=== PATIENT | female | born 1980 | race Caucasian/White ===

== ENCOUNTER 2024-12-02 10:51 | Outpatient (REF) | payer OTHER, SELFPAY ==
[2024-12-02 12:58] LABS: MANUAL DIFF FLAG NO
[2024-12-02 13:35] LABS: Basophils Absolute Auto 0.1 X10*3/uL (0.0-0.2); Basophils Percent Auto 1.1 % (0-2); Eosinophils Absolute Auto 0.3 X10*3/uL (0.0-0.4); Eosinophils Percent Auto 2.5 % (0-4); Hemoglobin 10.7 g/dl (12.0-16.0); Imm Gran Abs Auto 0.04 X10*3/uL (0.00-0.03); Imm Gran Pct Auto 0.3 % (0.0-0.4); Lymphocytes Absolute Auto 3.2 X10*3/uL (1.2-4.9); Lymphocytes Percent Auto 26.3 % (20-40); Mean Corpuscular HGB Conc 30.6 g/dl (31.0-35.0); Mean Corpuscular Hemoglobin 24.3 pg (27.0-33.0); Mean Corpuscular Volume 79.5 fL (80.0-98.0); Mean Platelet Volume 8.7 fL (9.4-12.3); Monocytes Absolute Auto 0.7 X10*3/uL (0.1-1.2); Monocytes Percent Auto 5.8 % (2-11); Neutrophils Absolute Auto 7.8 x10*3/uL (2.0-8.3); Platelet Count 636 X10*3/uL (160-400); Red Cell Distribution Width 14.4 % (11.0-16.0); White Blood Count 12.1 X10*3/uL (4.8-10.8)
[2024-12-02 14:25] LABS: Alanine Aminotransferase 11 U/L (0-31); Albumin Level 4.4 g/dL (3.5-5.0); Alkaline Phosphatase 59 U/L (39-117); Anion Gap 11 (12-20); Aspartate Amino Transferase 12 U/L (5-31); Bilirubin Total 0.3 mg/dL (0.0-1.0); Blood Urea Nitrogen 6 mg/dL (9-16); Calcium 9.1 mg/dL (8.4-10.2); Carbon Dioxide 23 mmol/L (22-29); Chloride 109 mmol/L (96-108); Cholesterol 210 mg/dL (<200); Estimated Glomerular Filt Rate > 60; Glucose Fasting 92 mg/dL (60-99); HDL Cholesterol 53 mg/dL (>40); LDL Cholesterol Calculated 126 mg/dL (<100); Potassium 3.8 mmol/L (3.3-5.1); Sodium 139 mmol/L (135-145); Total Protein 7.2 g/dL (6.5-8.0); Triglycerides 156 mg/dL (<150)
[2024-12-02 14:34] LABS: TSH reflex Free T4 2.41 uIU/mL (0.32-4.0); Vitamin D 25-OH Total 16.1 ng/mL (>30)
[2024-12-02 15:24] LABS: Appearance Urine Hazy; Color Urine Yellow; Glucose Urine UA Negative (Negative); Leukocyte Esterase Urine Negative (Negative); Nitrite Urine Negative (Negative); Specific Gravity - Urine >= 1.030 (1.005-1.025); Urine Blood Negative (Negative); Urine Ketones Negative (Negative); Urine Protein Negative (Neg-Trace)
== END 2024-12-02 10:52 | disposition home or self-care (01) ==
LOC: HO.LAB 10:51
DX: Z00.00 Encounter for general adult medical examination without abnormal findings (principal); K57.90 Diverticulosis of intestine, part unspecified, without perforation or abscess without bleeding; F31.81 Bipolar II disorder; F60.3 Borderline personality disorder
CPT/HCPCS: 36415; 80053; 80061; 81003; 82306; 84443; 85025; 96127; 99202

== ENCOUNTER 2024-12-02 10:51 | Outpatient (AMB) | payer OTHER, SELFPAY ==
--- NOTE | 2024-12-02 10:52 | A.OFFPC_ITS ---
Vital Signs 12/02/24 10:53 Height 5 ft 2.5 in Weight 174 lb 9.6 oz BMI 31.4 BP 124/80 Blood Pressure Location Lt brachial Position Sitting Respiration 18 Pulse 70 Pulse Source Pulse Oximeter Temp 99.2 F Temp Source Oral Pulse Oximetry (%) 99 Oxygen Delivery Method Room Air Intake Visit Reasons: Establish Care Intake Note: Patient is a new patient here to establish care. Transferring care from the Dr. Edgardo Alejandre Jr in [place], [place]; Patient states that it's been approximately 5 years since she's had a PCP. Medical records have not been requested and have not been received. Patient completed authorization of medical information release form today. 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: No Accompanied by: Spouse Allergies No Known Allergies Allergy (Verified 12/02/24 11:18) Medication List - Last Reconciled 12/02/24 by CARI Tolbert omeprazole 20 mg PO DAILY valacyclovir 1,000 mg PO Q12H PRN Tobacco use date assessed: 12/02/24 Dental Screening Dental Screen Date: 12/02/24 Did you have a dental visit in the last 12 months?: No Did you have a dental problem in the last 6 months where you did not have access to dental care?: No Was dental information given to patient?: Patient has dentist HPI Establish Care HPI Details Previous PCP: Edgardo Alejandre Jr, in [place], [place] Last visit: 5years ago Last PE: same Specialist: GI-egd/colonoscopy- 2013 -was due to repeat in 5years OBGYN: no-will referred Past medical history: Depression, bipolar d/o and borderline personality, marijuana use. Quitted drinking 4 months ago, but she would like to quit all of it. Reports seeing a therapist last when she was 30 years old. Reports that she was prescribed lexapro, wellbutrin and hydroxyzine. Reports that she had tried these medications but was not consistent with them. Problem: Every month a lot blood with clots from rectum. Reports this has been going on for couple of years now. Reports that she did not go to the ER for this. She had gone the emergency in 2013 and they referred her to have a colonoscopy and EGD. These this is supposed to be repeated in 5 years and was due years ago. Reports that she is bleeding during bowel movement only. Reports that it is bright red blood. Reports that the bleeding will happen each time she goes to the bathroom for about a week then it would just stop for a little while then restart after. Reports a history of hemorrhoids. Reports that they also removed benign polyps during her colonoscopy as well. Reports that this happened last about a week and half ago. Reports that it last for about a week. Reports that she feels tired a lot and she is not sure if it because she is depressed as well. Reports that her bottom is always sore even when it is not bleeding. 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 Patient chest pain, shortness of breath heart palpitation or dizziness Two small external hemorrhoids noted on exam. right inner arm lipoma and muscle pain -will revisit this on next appt [facility] Medical History (Updated 12/02/24 @ 12:42 by CARI Tolbert) Hemorrhoid Bipolar 2 disorder Diverticulosis Surgical History H/O endoscopy H/O colonoscopy H/O wisdom tooth extraction H/O elbow surgery Family History Father Diabetes Alcohol abuse Mother Arrhythmia Paternal Grandmother Substance abuse Paternal Grandfather Substance abuse Social History Household Members: Spouse Housing: House Alcohol intake: former Patient Tobacco Use Status: Former Tobacco user Years Smoked: 15; Quit-2013 e-Cigarette/Vaping Use: Currently Using (Vape) Substance Use Type: Marijuana service: No Current occupational status: employed (Self-employed) 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 1. Little interest or pleasure in doing things: nearly every day 2. Feeling down, depressed, or hopeless: nearly every day 3. Trouble falling or staying asleep, or sleeping too much: more than half the days 4. Feeling tired or having little energy: nearly every day 5. Poor appetite or overeating: more than half the days 6. Feeling bad about yourself - or that you are a failure or have let yourself or your family down: nearly every day 7. Trouble concentrating on things, such as reading the newspaper or watching television: nearly every day 8. Moving or speaking so slowly that other people could have noticed. Or the opposite - being so fidgety or restless that you have been moving around a lot more than usual: more than half the days 9. Thoughts that you would be better off or of hurting yourself in some way: more than half the days Total score: 23 Depression Screening Interpretation: Positive Depression Screening Done: Yes [id number] - PHQ-9 Billing: Yes Source: Developed by Drs. James Umana, Katja Preciado, Lee Harmon and colleagues, with an educational savanna from [employer]. Thrive Questionnaire Date Thrive assessed: 12/02/24 I am a: Patient What is your living situation today?: I have a steady place to live Within the past 12 months, did the food you bought not last and you didn't have the money to get more?: Never true Within the past 12 months, did you worry whether your food would run out before you got money to buy more?: Never true Do you have trouble paying for medicines?: No Do you have trouble getting transportation to medical appointments?: No Do you have trouble paying your heating and electricity bill?: Yes Do you have trouble taking care of your child, family member or friend?: No Do you have trouble with day-to-day activities such as bathing, preparing meals, shopping, managing finances, etc.?: No Are you currently unemployed and looking for a job?: No Are you interested in more education?: No Please select the resources that you would like help with: Utilities Currently or been in a relationship where the following occur: No concerns reported THRIVE Score: 1 AUDIT C Alcohol Use Questionnaire (AUDIT-C) 1. How often do you have a drink containing alcohol?: 2-4 times a month 2. How many drinks containing alcohol do you have on a typical day when you are drinking?: 1 or 2 3. How often do you have six or more drinks on one occasion?: Never Total Score: 2 SUZI-7 AMB Questionnaire SUZI-7 Date SUZI - 7 assessed: 12/02/24 Feeling nervous, anxious, or on edge: 3 = Nearly every day Not being able to stop or control worryin = Nearly every day Worrying too much about different things: 3 = Nearly every day Trouble relaxin = Nearly every day Being so restless that it is hard to sit still: 0 = Not at all Becoming easily annoyed or irritable: 3 = Nearly every day Feeling afraid as if something awful might happen: 3 = Nearly every day Total SUZI-7 score (0-4 normal; 5-9 mild; 10-14 moderate; 15-21 severe): 18 Source: Developed by Drs. James Umana, Katja Preciado, Lee Harmon and colleagues, with an educational savanna from [employer]. SUZI-7 Assessment Billing SUZI-7 Assessment Tool: SUZI-7 Assessment 05410 Review of Systems Const Denies headache(s) Eyes Denies loss of vision ENT Denies vertigo, Denies dizziness, Denies headache(s) and Denies sore throat Card Denies chest pain, Denies leg edema and Denies lightheadedness Resp Denies cough, Denies hemoptysis and Denies wheezing GI Denies abdominal pain, Denies melena, Reports hematochezia, Denies constipation, Reports heartburn (if she forgets to take omeprazole), Denies diarrhea and Denies vomiting Denies urinary frequency, Denies dysuria and Denies urinary urgency Musc Denies arthralgias, Denies joint swelling, Reports muscle cramps (right forearm), Denies numbness and Denies tingling Neuro Denies Abnormal speech present, Denies behavioral changes, Denies vertigo, Denies dizziness, Denies headache(s), Denies loss of vision, Denies memory loss, Denies numbness and Denies tingling Psych Reports anxiety, Denies behavioral changes, Reports depression, Denies memory loss and Denies panic attacks Donaldo/Lymph Denies easy bleeding and Denies easy bruising Aller/Immun Denies wheezing Physical exam (Primary Care) Vital Signs: Last Vital Signs Temp 99.2 F 12/02/24 10:53 Pulse 70 12/02/24 10:53 Resp 18 12/02/24 10:53 BP 124/80 12/02/24 10:53 Pulse Ox 99 12/02/24 10:53 Oxygen Delivery Method Room Air 12/02/24 10:53 BMI result Body Mass Index 31.4 Tobacco/Smoking Status: Tobacco use Status Tobacco use date assessed 12/02/24 12/02/24 11:15 Patient Tobacco Use Status Former Tobacco user 12/02/24 11:15 e-Cigarette/Vaping Use Currently Using (Vape) 12/02/24 11:15 PHQ-9: PHQ-9 Score PHQ-9: Total score 23 12/02/24 11:36 Depression Screening Interpretation: Positive Thrive Assessment: Date of Thrive Assessment Date Thrive assessed 12/02/24 12/02/24 11:15 Currently or been in a relationship where the following occur: No concerns reported Const General: healthy appearing, no acute distress, alert and awake Nutritional Appearance: well nourished Orientation/consciousness: oriented to person, oriented to place and oriented to time HENMT Ears: TM's normal bilaterally General nose exam: Normal nasal mucous membranes and turbinates present Eyes Conjunctivae: conjunctivae normal Sclerae: sclerae normal Pupils: Equal, round and reactive pupils present Neck Neck: Yes no lymphadenopathy and Yes no JVD Thyroid: Thyroid normal Carotids: no bruits Resp Effort & Inspection: normal respiratory effort and not tachypneic Auscultation: no crackles, no rales, no rhonchi and no wheezes Cardio Rate: regular rate Rhythm: regular rhythm Heart sounds: no murmurs and normal S1 and S2 GI Palpation (GI): Soft to palpation, nontender, no hepatomegaly and no splenomegaly Auscultation: normal bowel sounds Rectal Exam - Female: External hemorrhoid(s) present (two) Skin General skin exam: no rashes or lesions noted and dry skin Neuro General: oriented to person, oriented to place and oriented to time Cranial nerves: Yes Equal, round and reactive pupils present Speech: No Abnormal speech present Gait exam (Neuro): Normal gait present Motor exam (neuro): no tremor noted Extrem Right upper extremity: full ROM Left upper extremity: full ROM Right lower extremity: full ROM; no edema Left lower extremity: full ROM; no edema Psych Mental Status: mental status grossly normal Speech and movement: Normal speech and movement present Affect: normal affect Attitude: cooperative Thought process: Normal thought process present Coding Level of Care Code New Pt Level 4 (55389) Diagnoses Rectal bleeding K62.5 Hemorrhoids, unspecified hemorrhoid type K64.9 Hemorrhoid type: unspecified Gastroesophageal reflux disease, unspecified whether esophagitis present K21.9 Esophagitis presence: esophagitis presence not specified Borderline personality disorder F60.3 Bipolar 2 disorder F31.81 Additional Codes SUZI-7 Assessment Billing - SUZI-7 Assessment Tool: SUZI-7 Assessment 28158 ([id number]) PHQ-9 - 88828 - PHQ-9 Billing: Yes ([id number]) Time Spent (min) 43 Assessment & Plan Assessment & Plan (1) Rectal bleeding: Code(s): K62.5 - Hemorrhage of anus and rectum Category: Medical Plan: Recurrent blood from rectum with bowel movement-lasting for about a week with each episodes. History of diverticulosis and hemorrhoids. History of colonoscopy and EGD with removal of benign polyps. The patient was supposed to repeat exams 5 years ago but has not been to the doctors in a while. We will order labs and refer the patient to GI urgently (2) Hemorrhoid: Code(s): K64.9 - Unspecified hemorrhoids Category: Medical Qualifiers: Hemorrhoid type: unspecified Qualified Code(s): K64.9 - Unspecified hemorrhoids Plan: Two small external hemorrhoids noted on exam. No active bleeding. Patient reports constant rectal pain. Hemorrhoids ointment and suppository recommended the patient (3) GERD (gastroesophageal reflux disease): Code(s): K21.9 - Gastro-esophageal reflux disease without esophagitis Category: Medical Qualifiers: Esophagitis presence: esophagitis presence not specified Qualified Code(s): K21.9 - Gastro-esophageal reflux disease without esophagitis Plan: Reports heartburn whenever she forgets to take her omeprazole Omeprazole 20 mg daily ordered (4) Borderline personality disorder: Code(s): F60.3 - Borderline personality disorder Category: Medical Plan: Depression, bipolar d/o and borderline personality, marijuana use. Quitted drinking 4 months ago, but she would like to quit all of it. Reports seeing a therapist last when she was about 30 years old. Reports that she was prescribed lexapro, wellbutrin and hydroxyzine. Reports that she had tried these medications but was not consistent with them. Reports that she would really like to see someone. A psychiatry referral was placed and the patient was connected with the Community navigator (5) Bipolar 2 disorder: Code(s): F31.81 - Bipolar II disorder Category: Medical Plan: Same as above Plan Get labs done as soon as possible. Return to office in 6 weeks or sooner for any concerns Orders: Orders Comprehensive [place]. Panel Fast Today F3.81 - Bipolar II disorder, F60.3 - Borderline personality disorder, K57.90 - Diverticulosis of intestine, part unspecified, without perforation or abscess without bleeding, Z00.00 - Encounter for general adult medical examination without abnormal findings Lipid Panel Today F31.81 - Bipolar II disorder, F60.3 - Borderline personality disorder, K57.90 - Diverticulosis of intestine, part unspecified, without perforation or abscess without bleeding, Z00.00 - Encounter for general adult medical examination without abnormal findings TSH reflex Free T4 Today F3.81 - Bipolar II disorder, F60.3 - Borderline personality disorder, K57.90 - Diverticulosis of intestine, part unspecified, without perforation or abscess without bleeding, Z00.00 - Encounter for general adult medical examination without abnormal findings Glucose Fasting Today F31.81 - Bipolar II disorder, F60.3 - Borderline personality disorder, K57.90 - Diverticulosis of intestine, part unspecified, without perforation or abscess without bleeding, Z00.00 - Encounter for general adult medical examination without abnormal findings Complete Blood Count Auto Diff Today F31.81 - Bipolar II disorder, F60.3 - Borderline personality disorder, K57.90 - Diverticulosis of intestine, part unspecified, without perforation or abscess without bleeding, Z00.00 - Encounter for general adult medical examination without abnormal findings UA CC w/rflx Micro + Cult Today F31.81 - Bipolar II disorder, F60.3 - Borderline personality disorder, K57.90 - Diverticulosis of intestine, part unspecified, without perforation or abscess without bleeding, Z00.00 - Encounter for general adult medical examination without abnormal findings Vitamin D 25-OH Total Today F31.81 - Bipolar II disorder, F60.3 - Borderline personality disorder, K57.90 - Diverticulosis of intestine, part unspecified, without perforation or abscess without bleeding, Z00.00 - Encounter for general adult medical examination without abnormal findings Referrals Gastroenterology Referral K21.9 - Gastro-esophageal reflux disease without esophagitis, K62.5 - Hemorrhage of anus and rectum, K64.9 - Unspecified hemorrhoids, Z86.0100 - Personal history of colon polyps, unspecified, Z87.19 - Personal history of other diseases of the digestive system Psychiatry Referral F41.9 - Anxiety disorder, unspecified 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
[2024-12-02 10:53] VITALS: BP 124/80; PULSE 70; RESP 18; TEMP 37.3; O2SAT 99; BMI 31.4
== END 2024-12-02 12:31 | disposition home or self-care (01) ==
DX: K62.5 Hemorrhage of anus and rectum (principal); K64.9 Unspecified hemorrhoids; K21.9 Gastro-esophageal reflux disease without esophagitis; F60.3 Borderline personality disorder; F31.81 Bipolar II disorder